=== PATIENT | female | born 1975 | race African-American/Black ===

== ENCOUNTER 2016-07-15 17:52 | Emergency (ER) | payer OTHER ==
[2016-07-15 18:11] VITALS: TEMP 98.3; BMI 51.6
--- NOTE | 2016-07-15 18:42 | PDOC ---
History of Present Illness - General Chief Complaint: Pain Stated Complaint: SOB/PAIN RT SIDE WHEN BREATHING Time Seen by Provider: 07/15/16 18:39 History Source: Patient Exam Limitations: No Limitations - History of Present Illness Travel History: No Timing/Duration: reports: intermittent Quality: reports: dullness Abdominal Pain Onset Location: reports: RUQ Pain Radiation: reports: no radiation Activities at Onset: reports: none Aggravating Factors: improves with: Change in position Alleviating Factors: improves with: None Past History - Travel Traveled outside of the country in the last 30 days: No Close contact w/someone who was outside of country & ill: No - Past Medical History Allergies/Adverse Reactions: Allergies Allergy/AdvReac Type Severity Reaction Status Date / Time No Known Allergies Allergy Verified 07/15/16 18:09 Home Medications: Ambulatory Orders Hydrochlorothiazide [Hctz -] 12.5 mg PO DAILY 12/12/15 Amlodipine Besylate [Norvasc -] 2.5 mg PO DAILY 07/15/16 Cephalexin [Keflex] 500 mg PO BID #14 capsule 07/16/16 Anemia: No Asthma: Yes Cancer: No Cardiac Disorders: (mvp) CVA: No COPD: No CHF: No Dementia: No Diabetes: No GI Disorders: No Disorders: No HTN: Yes Hypercholesterolemia: No Liver Disease: No Seizures: No Thyroid Disease: No - Surgical History Abdominal Surgery: No Appendectomy: No Cardiac Surgery: No Cholecystectomy: No Lung Surgery: No Neurologic Surgery: No Orthopedic Surgery: Yes (Left Knee and Right Wrist Arthroscopy) - Immunization History Td Vaccination: No Immunization Up to Date: Yes - Psycho/Social/Smoking Cessation Hx Anxiety: No Suicidal Ideation: No Smoking Status: Yes Smoking History: Current every day smoker Have you smoked in the past 12 months: Yes Number of Cigarettes Smoked Daily: 5 Cigars Per Day: 0 Information on smoking cessation initiated: No 'Breaking Loose' booklet given: 12/12/15 Hx Alcohol Use: No Drug/Substance Use Hx: No Substance Use Type: None Hx Substance Use Treatment: No Abd/GI Specific PMHX - Complaint Specific PMHX Colitis: No Diverticulitis: No Gall Bladder Disease: No GERD: No Hepatitis: No Review of Systems - Review of Systems Able to Perform ROS?: Yes Comments:: 07/15/16 20:59 CONSTITUTIONAL: Absent: fever, chills, diaphoresis, generalized weakness, malaise, loss of appetite HEENT: Absent: rhinorrhea, nasal congestion, throat pain, throat swelling, difficulty swallowing, mouth swelling, ear pain, eye pain, visual Changes CARDIOVASCULAR: Absent: chest pain, loss of consciousness, palpitations, irregular heart rate, peripheral edema RESPIRATORY: Absent: cough, shortness of breath, dyspnea with exertion, orthopnea, wheezing, stridor, hemoptysis GASTROINTESTINAL: +RUQ Absent: abdominal distension, nausea, vomiting, diarrhea, constipation, melena, hematochezia GENITOURINARY: Absent: dysuria, frequency, urgency, hesitancy, hematuria, flank pain, genital pain MUSCULOSKELETAL: Absent: myalgia, arthralgia, joint swelling SKIN: Absent: rash, itching, pallor HEMATOLOGIC/IMMUNOLOGIC: Absent: easy bleeding, easy bruising, lymphadenopathy, frequent infections ENDOCRINE: Absent: unexplained weight gain, unexplained weight loss, heat intolerance, cold intolerance NEUROLOGIC: Absent: headache, focal weakness or paresthesias, dizziness, unsteady gait, seizure, mental status changes, bladder or bowel incontinence PSYCHIATRIC: Absent: anxiety, depression, suicidal or homicidal ideation, hallucinations. Is the patient limited Austrian proficient: No *Physical Exam - Vital Signs Last Vital Signs Temp Pulse Resp BP Pulse Ox 98.3 F 75 18 155/90 100 07/15/16 18:05 07/15/16 18:05 07/15/16 18:05 07/15/16 18:05 07/15/16 18:05 - Physical Exam Comments: 07/15/16 20:59 GENERAL: Well developed, well nourished. Awake and alert. No acute distress. HEENT: Normocephalic, atraumatic. PERRLA, EOMI. No conjunctival pallor. Sclera are non- icteric. Moist mucous membranes. Oropharynx is clear. NECK: Supple. Full ROM. No JVD. Carotid pulses 2+ and symmetric, without bruits. No thyromegaly. No lymphadenopathy. CARDIOVASCULAR: Regular rate and rhythm. No murmurs, rubs, or gallops. Distal pulses are 2+ and symmetric. PULMONARY: No evidence of respiratory distress. Lungs clear to auscultation bilaterally. No wheezing, rales or rhonchi. ABDOMINAL: RUQ pain on palp Soft. Non-distended. No rebound or guarding. No organomegaly. Normoactive bowel sounds. MUSCULOSKELETAL Normal range of motion at all joints. No bony deformities or tenderness. No CVA tenderness. EXTREMITIES: No cyanosis. No clubbing. No edema. No calf tenderness. SKIN: Warm and dry. Normal capillary refill. No rashes. No jaundice. NEUROLOGICAL: Alert, awake, appropriate. Cranial nerves 2-12 intact. No deficits to light touch and temperature in face, upper extremities and lower extremities. No motor deficits in the in face, upper extremities and lower extremities. Normoreflexic in the upper and lower extremities. Normal speech. Toes are down- going bilaterally. Gait is normal without ataxia. PSYCHIATRIC: Cooperative. Good eye contact. Appropriate mood and affect. ED Treatment Course - LABORATORY CBC & Chemistry Diagram: 07/15/16 19:00 07/15/16 21:35 Progress Note - Progress Note Progress Note: 40-year-old female presents to the emergency department complaining of right upper quadrant abdominal discomfort 3 days. Pain is described as 8/10 dull nonradiating intermittent discomfort. The pain is exacerbated on touch and movements and alleviated at rest. Pain is associated with nausea but no vomiting , chills and "possibly fever". Patient denies any chest pain, shortness of breath, urinary symptoms: Frequency/urgency/hesitancy, hematuria, flank pain. Patient says she drinks alcohol every day for the past 8 years. She cannot say how much "but enough". LMP: 06/27/2016 *DC/Admit/Observation/Transfer Diagnosis at time of Disposition: Ulcer UTI (urinary tract infection) Qualifiers: Urinary tract infection type: acute cystitis Hematuria presence: without hematuria Qualified Code(s): N30.00 - Acute cystitis without hematuria Morbid obesity Qualifiers: Obesity type: unspecified obesity type Qualified Code(s): E66.01 - Morbid ( severe) obesity due to excess calories - Discharge Dispostion Disposition: HOME Condition at time of disposition: Improved - Prescriptions Prescriptions: Cephalexin [Keflex] 500 mg PO BID #14 capsule - Referrals Referrals: STAFF,NOT ON [Primary Care Provider] - Julia Garcia MD [Staff Physician] - Emeka Toscano MD [Staff Physician] - - Patient Instructions Printed Discharge Instructions: Peptic Ulcer, DI for Urinary Tract Infection ( UTI) Additional Instructions: Rx: Keflex 500mg take 1 tablet by mouth twice a day for 7 days Increase fluids Rest 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 The final reading will be done within 48 hours. The CAT scan report shows a small hiatal hernia. Underdistention versus wall thickening of the pylorus. Correlate with possible thick ulcer disease. Right adnexal cyst and or per dominant follicle measuring 1.7 cm. Prominence of the endometrium. Correlate with menstrual cycle. Mild arthrosis of the spine and bilateral SI joints. We have spoke in depth regarding your weight. You informed us that you are 359 pounds. You are 5 foot 10 inches. You should be weighing less than 160 pounds for you height. Your BMI is at 51.5. That puts you at morbidly obese. It is strongly encouraged that you see your primary care physician regarding to weight or a rn school.
[2016-07-15] MEDS ORDERED: SODIUM CHLORIDE 1,000 ML IV STA (18:45)
[2016-07-15 19:10] LABS: BASOPHIL 0.6 % (0-2.0); EOSINOPHIL 5.9 % (0-4.5); MCHC 31.5 g/dl (32.0-36.0); MEAN CELL VOLUME 85.7 fl (80-96); MEAN PLT VOLUME 8.4 fl (7.5-11.1); NEUTROPHILS 55.7 % (42.8-82.8); PLATELET COUNT 324 K/MM3 (134-434); RDW 15.4 % (11.6-15.6); WHITE BLOOD COUNT 6.5 K/mm3 (4.0-10.0)
[2016-07-15 19:18] LABS: URINE APPEARANCE CLOUDY; URINE BILIRUBIN NEGATIVE (NEGATIVE); URINE COLOR YELLOW; URINE GLUCOSE (UA) NEGATIVE (NEGATIVE); URINE KETONE NEGATIVE (NEGATIVE); URINE NITRITE NEGATIVE (NEGATIVE); URINE PROTEIN NEGATIVE (NEGATIVE); URINE UROBILINOGEN NEGATIVE E.U./dl (0.2-1.0)
[2016-07-15 19:20] LABS: URINE BLOOD 1+ (NEGATIVE); URINE LEUK ESTERASE 3+ (NEGATIVE)
[2016-07-15 19:21] LABS: URINE HYALINE CAST 3 /lpf; URINE MUCUS RARE; URINE RBC 5 /hpf (0-3); URINE WBC 9 /hpf (3-5)
[2016-07-15] MEDS ORDERED: HYDROmorphone HCL CARPU-JECT 1 MG/1 ML DISP.SYRIN IVPB ONE (21:17)
[2016-07-15] MEDS ORDERED: HYDROmorphone HCL CARPU-JECT 1 MG/1 ML DISP.SYRIN ONE (21:22)
[2016-07-15] MEDS ORDERED: CEPHALEXIN MONOHYDRATE 500 MG CAPSULE (UD) PO ONE (21:54)
[2016-07-15 22:06] LABS: ALBUMIN 3.3 g/dl (3.4-5.0); ALK PHOS 83 U/L (45-117); ANION GAP 6 (8-16); BILIRUBIN,TOTAL 0.4 mg/dL (0.2-1.0); CALCIUM 8.9 mg/dL (8.5-10.1); CO2 25 mmol/L (21-32); CREATININE 0.9 mg/dL (0.55-1.02); GLUCOSE,RANDOM 94 mg/dL (74-106); SGOT/AST 13 U/L (15-37); SGPT/ALT 18 U/L (12-78); TOT PROT 6.7 g/dl (6.4-8.2)
[2016-07-15] MEDS ORDERED: CEPHALEXIN MONOHYDRATE 250 MG CAPSULE (FP) ONE (22:07)
[2016-07-16] MEDS ORDERED: HYDROmorphone HCL CARPU-JECT 1 MG/1 ML DISP.SYRIN ONE (01:05)
[2016-07-16] MEDS ORDERED: HYDROmorphone HCL CARPU-JECT 1 MG/1 ML DISP.SYRIN IVPUSH ONE (02:06)
[2016-07-17 04:54] VITALS: BP 142/86; PULSE 68
== END 2016-07-16 02:18 | disposition home or self-care (01) ==
LOC: JER 17:52
PROC: 3E0337Z Introduction of Electrolytic and Water Balance Substance into Peripheral Vein, Percutaneous Approach (ICD-10-PCS; principal; 2016-07-15)
PROC: 3E033NZ Introduction of Analgesics, Hypnotics, Sedatives into Peripheral Vein, Percutaneous Approach (ICD-10-PCS; 2016-07-15)
DX: R10.11 Right upper quadrant pain (principal); N30.00 Acute cystitis without hematuria; I10 Essential (primary) hypertension; E66.01 Morbid (severe) obesity due to excess calories; Z68.43 Body mass index [BMI] 50.0-59.9, adult
CPT/HCPCS: 36415; 74177-TC; 76705-TC; 80053; 81003; 81015; 84703; 85025; 96361; 96374; 96376; 99284-25

== ENCOUNTER 2016-09-22 23:31 | Emergency (ER) | payer OTHER ==
[2016-09-22 23:48] VITALS: BP 162/79; PULSE 89; TEMP 98; BMI 47.3
--- NOTE | 2016-09-23 00:37 | PDOC ---
History of Present Illness - General Chief Complaint: Edema Stated Complaint: SWOLLEN LEGS Time Seen by Provider: 09/22/16 23:54 History Source: Patient Exam Limitations: No Limitations - History of Present Illness Initial Comments: 09/23/16 00:32 40yo Female patient presents to ED c/o bilateral leg pain/swelling which began today. Patient states her legs look weird and noticed swelling, so she came in for evaluation. Denies trauma, fall, injury, any medical conditions, or any medications at this time. Patient denies any other complaints at this time. Patient requesting pain medications prior to assessment. LNMP: Aug 28. Occurred: reports: this evening Severity: Yes: mild Lower Extremity Pain Location: bilateral: leg Method of Injury: No: unknown, assault, burn, direct blow, fell, incised, motor vehicle accident, sports injury, twisted, other Modifying Factors: worse with: None, cold therapy, immobilization, pain medication, rest, other Lower Ext. Injury Location - Specific Injury Location Legs: bilateral: normal range of motion, soft tissue tenderness, pain, swelling Extremity Pain Location - Extremity Pain Location Extremity Pain Locations: bilateral: leg Past History - Travel Traveled outside of the country in the last 30 days: No Close contact w/someone who was outside of country & ill: No - Past Medical History Allergies/Adverse Reactions: Allergies Allergy/AdvReac Type Severity Reaction Status Date / Time No Known Allergies Allergy Verified 09/22/16 23:45 Home Medications: Ambulatory Orders Hydrochlorothiazide [Hctz -] 12.5 mg PO DAILY 12/12/15 Amlodipine Besylate [Norvasc -] 2.5 mg PO DAILY 07/15/16 Anemia: No Asthma: Yes Cancer: No Cardiac Disorders: (mvp) CVA: No COPD: No CHF: No Dementia: No Diabetes: No GI Disorders: No Disorders: No HTN: Yes Hypercholesterolemia: No Liver Disease: No Seizures: No Thyroid Disease: No - Surgical History Abdominal Surgery: No Appendectomy: No Cardiac Surgery: No Cholecystectomy: No Lung Surgery: No Neurologic Surgery: No Orthopedic Surgery: Yes (Left Knee and Right Wrist Arthroscopy) - Immunization History Td Vaccination: No Immunization Up to Date: Yes - Psycho/Social/Smoking Cessation Hx Anxiety: No Suicidal Ideation: No Smoking Status: Yes Smoking History: Current some day smoker Have you smoked in the past 12 months: Yes Number of Cigarettes Smoked Daily: 5 Cigars Per Day: 0 Information on smoking cessation initiated: Yes 'Breaking Loose' booklet given: 09/22/16 Hx Alcohol Use: No Drug/Substance Use Hx: No Substance Use Type: None Hx Substance Use Treatment: No Review of Systems - Review of Systems Able to Perform ROS?: Yes Is the patient limited Palauan proficient: No Constitutional: No: Chills, Fever Respiratory: No: Cough, Shortness of Breath, Stridor, Wheezing Cardiac (ROS): No: Chest Pain, Palpitations, Syncope, Chest Tightness : No: Dysuria, Hematuria Musculoskeletal: Yes: Other (Bilateral leg swelling.). No: Back Pain, Joint Swelling, Joint Stiffness Integumentary: No: Rash Neurological: No: Headache All Other Systems: Reviewed and Negative *Physical Exam - Vital Signs Last Vital Signs Temp Pulse Resp BP Pulse Ox 98 F 89 18 162/79 100 09/22/16 23:46 09/22/16 23:46 09/22/16 23:46 09/22/16 23:46 09/22/16 23:46 - Physical Exam General Appearance: Yes: Nourished, Appropriately Dressed. No: Apparent Distress, Mild Distress, Moderate Distress, Severe Distress Neck: positive: Trachea midline, Supple. negative: Rigid Respiratory/Chest: positive: Lungs Clear, Normal Breath Sounds. negative: Respiratory Distress, Accessory Muscle Use, Labored Respiration, Rapid RR Cardiovascular: positive: Regular Rhythm, Regular Rate Gastrointestinal/Abdominal: positive: Normal Bowel Sounds, Soft. negative: Distended, Guarding, Rebound, Tenderness Musculoskeletal: positive: Normal Inspection. negative: CVA Tenderness Extremity: positive: Normal Capillary Refill, Normal Inspection, Normal Range of Motion, Pedal Edema, Swelling. 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 CRUZ FOR EARLY APPOINTMENT THIS WEEK FOR EVALUATION. YOUR LEG SWELLING MAY BE DUE TO THE USE OF CALCIUM CHANNEL [place]. AVOID SALT AND SALTY FOODS. MOTRIN OR TYLENOL FOR PAIN NEEDED. Print Language: UPPER SORBIAN
[2016-09-23 01:12] LABS: BASOPHIL 0.4 % (0-2.0); EOSINOPHIL 1.6 % (0-4.5); MCH 27.7 pg (25.7-33.7); MCHC 32.9 g/dl (32.0-36.0); MEAN PLT VOLUME 8.3 fl (7.5-11.1); NEUTROPHILS 64.8 % (42.8-82.8); PLATELET COUNT 243 K/MM3 (134-434); RDW 14.1 % (11.6-15.6)
[2016-09-23] MEDS ORDERED: KETOROLAC TROMETHAMINE 30 MG/1 ML VIAL IM ONE (01:20)
[2016-09-23] MEDS ORDERED: KETOROLAC TROMETHAMINE 30 MG/1 ML VIAL ONE (01:22)
[2016-09-23 01:48] LABS: ALBUMIN 3.5 g/dl (3.4-5.0); ALK PHOS 74 U/L (45-117); ANION GAP 10 (8-16); BILIRUBIN,TOTAL 0.4 mg/dL (0.2-1.0); CALCIUM 8.8 mg/dL (8.5-10.1); CO2 26 mmol/L (21-32); CREATININE 0.9 mg/dL (0.55-1.02); GLUCOSE,RANDOM 103 mg/dL (74-106); SGOT/AST 18 U/L (15-37); SGPT/ALT 20 U/L (12-78); TOT PROT 6.9 g/dl (6.4-8.2)
[2016-09-23 01:51] LABS: INR 0.96 (0.82-1.09)
[2016-09-23 01:54] LABS: D-DIMER < 200 ng/ml (<200-235)
[2016-09-23 05:37] LABS: THYROID STIMULATING HORMONE 0.82 uIU/ml (0.358-3.74)
== END 2016-09-23 03:37 | disposition home or self-care (01) ==
LOC: JER 23:31
PROC: 3E0233Z Introduction of Anti-inflammatory into Muscle, Percutaneous Approach (ICD-10-PCS; principal; 2016-09-22)
DX: R60.0 Localized edema (principal)
CPT/HCPCS: 36415; 80053; 83880; 84443; 85025; 85379; 85610; 85651; 96372; 99282-25

== ENCOUNTER 2016-10-09 21:01 | Emergency (ER) | payer OTHER ==
[2016-10-09 21:21] VITALS: BP 145/83; PULSE 87; TEMP 98.1; BMI 46.0
== END 2016-10-09 23:00 | disposition left against medical advice (07) ==
LOC: JERFT 21:01
DX: Z53.21 Procedure and treatment not carried out due to patient leaving prior to being seen by health care provider (principal)
CPT/HCPCS: 99281-25

== ENCOUNTER 2016-12-11 21:35 | Emergency (ER) | payer OTHER ==
[2016-12-11 22:07] VITALS: BMI 46.0
[2016-12-11] MEDS ORDERED: OXYCODONE/APAP 5/325MG COMBO TABLET PO ONE (22:46)
[2016-12-11] MEDS ORDERED: OXYCODONE/APAP 5/325MG COMBO TABLET ONE (23:17)
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
[2016-12-12 00:45] VITALS: BP 150/90; PULSE 89; TEMP 98.8
== END 2016-12-12 00:45 | disposition home or self-care (01) ==
LOC: JER 21:35
PROC: 2W3EX1Z Immobilization of Right Hand using Splint (ICD-10-PCS; principal; 2016-12-11)
DX: S60.221A Contusion of right hand, initial encounter (principal); Y04.2XXA Assault by strike against or bumped into by another person, initial encounter; Y93.89 Activity, other specified; Y92.89 Other specified places as the place of occurrence of the external cause
CPT/HCPCS: 73110-TC-RT; 73130-TC-RT; 99282-25

== ENCOUNTER → 2018-04-07 | Emergency (ER) | payer SELFPAY ==
[~2018-04-07] MED LIST: CEPHALEXIN MONOHYDRATE 500 MG CAPSULE (UD) ONE; CEPHALEXIN MONOHYDRATE 500 MG CAPSULE (UD) PO ONE; DIPHTH,PERTUSS(ACELL),TET 0.5 ML DISP.SYRIN IM ONE; IBUPROFEN 400 MG TABLET (FP) PO ONE
--- NOTE | 2018-04-07 02:01 | PDOC ---
History of Present Illness <Zahra Berkowitz - Last Filed: 04/07/18 04:03> - General History Source: Patient Exam Limitations: No Limitations - History of Present Illness Initial Comments: 04/07/18 02:52 42 year old female with PMH atrial fibrillation on eliquis, HTN presented to ED complaining of right big toe pain s/p dropping a dede car part on it x2 days ago. Denies fever, chills, nausea, vomiting, inability to bear weight, or any other complaints. Allergies - NKDA <Libby Whitney - Last Filed: 04/07/18 19:35> - General Stated Complaint: INJURY,LT FOOT Time Seen by Provider: 04/07/18 02:00 Past History <Zahra Berkowitz - Last Filed: 04/07/18 04:03> - Past Medical History Anemia: No Asthma: Yes Cancer: No Cardiac Disorders: Yes (mvp) CVA: No COPD: No CHF: No Dementia: No Diabetes: No GI Disorders: No Disorders: No HTN: Yes Hypercholesterolemia: No Liver Disease: No Seizures: No Thyroid Disease: No - Surgical History Abdominal Surgery: No Appendectomy: No Cardiac Surgery: No Cholecystectomy: No Lung Surgery: No Neurologic Surgery: No Orthopedic Surgery: Yes (Left Knee and Right Wrist Arthroscopy) - Immunization History Td Vaccination: No Immunization Up to Date: Yes - Suicide/Smoking/Psychosocial Hx Smoking Status: Yes Smoking History: Current every day smoker Have you smoked in the past 12 months: Yes Number of Cigarettes Smoked Daily: 5 Cigars Per Day: 0 'Breaking Loose' booklet given: 09/22/16 Hx Alcohol Use: No Drug/Substance Use Hx: No Substance Use Type: None Hx Substance Use Treatment: No <Libby Whitney - Last Filed: 04/07/18 19:35> - Past Medical History Allergies/Adverse Reactions: Allergies Allergy/AdvReac Type Severity Reaction Status Date / Time No Known Allergies Allergy Verified 04/07/18 02:31 Home Medications: Ambulatory Orders Hydrochlorothiazide [Hctz -] 12.5 mg PO DAILY 12/12/15 Amlodipine Besylate [Norvasc -] 2.5 mg PO DAILY 07/15/16 Tramadol HCl 50 mg PO TID #14 tablet MDD 3 12/12/16 Apixaban [Eliquis -] 5 mg PO BID #60 tablet 02/21/18 Apixaban [Eliquis] 5 mg PO BID #6 tablet 02/21/18 Metoprolol Succinate [Toprol XL -] 50 mg PO DAILY #30 tab.sr.24h 02/21/18 Cephalexin Monohydrate [Keflex -] 500 mg PO BID #14 capsule 04/07/18 Review of Systems - Review of Systems Able to Perform ROS?: Yes Comments:: 04/07/18 04:39 General: denies fever, chills, night sweats, generalized weakness. HEENT: denies sore throat, rhinorrhea, ear pain. Heart: denies chest pain, palpitations, syncope, lower extremity swelling, diaphoresis. Respiratory: denies shortness of breath, cough, sputum production, hemoptysis. Abdomen: denies abdominal pain, nausea, vomiting, diarrhea, constipation, blood in stool. : denies dysuria, increased urinary frequency, hematuria, urinary incontinence , flank pain. Back: denies back pain. Musculoskeletal: admits to right toe pain, right toe swelling. Neurological: denies headache, dizziness, numbness, tingling, weakness. Skin: admits to right toe erythema and bleeding. <Libby Whitney - Last Filed: 04/07/18 19:35> *Physical Exam - Vital Signs Last Vital Signs Temp Pulse Resp BP Pulse Ox 98.5 F 78 18 144/93 97 04/07/18 00:20 04/07/18 00:20 04/07/18 00:20 04/07/18 00:20 04/07/18 00:20 <Zahra Berkowitz - Last Filed: 04/07/18 04:03> - Physical Exam Comments: 04/07/18 04:40 Constitutional: Well-nourished, Well-developed, appearing stated age. HEENT: head is normocephalic, atraumatic. EOMI. PERRLA. Neck: supple. Full ROM. Heart: regular rhythm. no murmurs, rubs or gallops. Lungs: clear to auscultation bilaterally. no crackles, rhonchi or wheezing. no stridor. Abdomen: soft, nontender. normal bowel sounds. no rebound, guarding, masses. Extremities: right big toe subungual hematoma. erythema and swelling to right big toe. no nail avulsion to right big toe. Peripheral pulses intact and equal. No lower extremity edema. Neurological: CN 2-12 grossly intact. Moves all four extremities. Psych: awake, alert, oriented x3. Follows commands. Answers questions appropriately. <Libby Whitney - Last Filed: 04/07/18 19:35> ED Treatment Course - ADDITIONAL ORDERS Additional order review: Laboratory Results 04/07/18 03:00 Urine HCG, Qual Negative - Medications Given in the ED: ED Medications Discontinued Medications Generic Name Dose Route Start Last Admin Trade Name Hectorq PRN Reason Stop Dose Admin Cephalexin HCl 500 mg 04/07/18 02:55 04/07/18 03:29 Keflex - PO 04/07/18 02:56 500 mg ONCE ONE Administration Diphtheria/Tetanus/Acell Pertussis 0.5 ml 04/07/18 03:01 04/07/18 03:30 Boostrix - IM 04/07/18 03:02 0.5 ml .ONCE ONE Administration Ibuprofen 800 mg 04/07/18 03:30 04/07/18 03:46 Motrin - PO 04/07/18 03:31 800 mg ONCE ONE Administration <Zahra Berkowitz - Last Filed: 04/07/18 04:03> Medical Decision Making - Medical Decision Making 04/07/18 02:53 42 year old female with PMH atrial fibrillation on eliquis, HTN presenting to ED for right big toe pain x3 days. Shes states she dropped a dede car part on it x3 days ago. She denies fever, chills, nausea, vomiting, abdominal pain, chest pain, palpitations, shortness of breath, cough. She states her last tetanus was over 10 years ago. Initial Vital Signs Temp Pulse Resp BP Pulse Ox 98.5 F 78 18 144/93 97 04/07/18 00:20 04/07/18 00:20 04/07/18 00:20 04/07/18 00:20 04/07/18 00:20 Afebrile. No tachycardia. Mild hypertension. No hypoxia on room air. Concern for fracture - Pending urine test - Pending XR Concern for cellulitis, erythematous, tender - Keflex given - Tetanus shot given Urine test negative. Pt was able to walk to XR without difficulty. Subungual hematoma x3 days old, no indication for drainage at this point. Nail is fully attached to the toe. XR Right foot - Bettie fracture to right big toe. - Keflex prescription sent to pharmacy. Pt eloped prior to receiving X-ray results. Prescription sent to pharmacy on file. Message left on her answering machine. 04/07/18 19:34 <Libby Whitney - Last Filed: 04/07/18 19:35> *DC/Admit/Observation/Transfer - Discharge Dispostion Decision to Admit order: No <Zahra Berkowitz - Last Filed: 04/07/18 04:03> - Discharge Dispostion Decision to Admit order: No <Libby Whitney - Last Filed: 04/07/18 19:35> Diagnosis at time of Disposition: Fracture of distal phalanx of toe - Discharge Dispostion Disposition: ELOPED Condition at time of disposition: Stable - Prescriptions Prescriptions: Cephalexin Monohydrate [Keflex -] 500 mg PO BID #14 capsule - Referrals Referrals: Abel Cobb MD [Staff Physician] - Andrez Meek MD [Primary Care Provider] - - Patient Instructions Printed Discharge Instructions: DI for Toe Fracture, DI for Open Fracture - Post Discharge Activity
--- NOTE | 2018-04-07 02:23 | PDOC ---
Attending Attestation - Resident Resident Name: Libby Whitney - ED Attending Attestation I have performed the following: I have examined & evaluated the patient, The case was reviewed & discussed with the resident, I agree w/resident's findings & plan, Exceptions are as noted - HPI HPI: 42 yo F history HTN, afib on eliquis presents with R great toe pain after dropping a dede car part on it 2 days ago. She states that it was bleeding at the time, took quite awhile to stop due to eliquis. She has had continued pain since then, although the wound has developed a clot followed by a scab. - Physicial Exam PE: GENERAL: Awake, alert, and fully oriented, in no acute distress HEAD: No signs of trauma EYES: PERRLA, EOMI, sclera anicteric, conjunctiva clear EXTREMITIES: R great toe with slight elevation, subungual hematoma, with small scab to the periphery of the nail. +Swelling, slight erythema. Remainder of extremities with normal range of motion, no edema. No clubbing or cyanosis. No cords, erythema, or tenderness NEUROLOGICAL: Cranial nerves II through XII grossly intact. Normal speech, normal gait SKIN: Warm, Dry, normal turgor, no rashes or lesions noted. - Medical Decision Making For the subungual hematoma, will not trephinate, as it has been 2 days and unlikely to be of any benefit at this time. Will give abx for redness, awaiting XR. 04/07/18 04:31 Pt eloped prior to receiving XR results. She has open fracture (while the wound is scabbed over at this point, there is an underlying fx, needs to continue abx) . I left message on her phone to call back so I could explain DC instructions. 04/07/18 04:35 Pt back in ED. Will DC home. 04/07/18 05:06 Pt eloped again.
[2018-04-07 02:31] VITALS: BP 144/93; PULSE 78; TEMP 98.5; BMI 50.2
== END | disposition left against medical advice (07) ==
LOC: JER 00:19
PROC: 3E0234Z Introduction of Serum, Toxoid and Vaccine into Muscle, Percutaneous Approach (ICD-10-PCS; principal; 2018-04-07)
DX: S92.424A Nondisplaced fracture of distal phalanx of right great toe, initial encounter for closed fracture (principal); W20.8XXA Other cause of strike by thrown, projected or falling object, initial encounter; Y93.89 Activity, other specified; Y92.89 Other specified places as the place of occurrence of the external cause; Y99.8 Other external cause status
CPT/HCPCS: 73630-TC-RT-FY; 84703; 90715; 99281-25

== ENCOUNTER 2018-06-20 16:58 | Emergency (ER) | payer OTHER ==
[2018-06-20 17:12] VITALS: BP 157/94; PULSE 80; TEMP 98.1; BMI 41.8
[2018-06-20] MEDS ORDERED: ALBUTEROL SO4 2.5/IPRATROPIUM 0.5 INH SOL 3 ML VIAL.NEB. NEB ONE ×2 (17:20→17:38)
--- NOTE | 2018-06-20 17:28 | PDOC ---
History of Present Illness - General Chief Complaint: Asthma Stated Complaint: DIFFICULTY BREATHING Time Seen by Provider: 06/20/18 17:14 History Source: Patient - History of Present Illness Initial Comments: 06/20/18 18:36 42 year old female with asthma, cough, throat pain and nasal congestion denies fver/ chills Past History - Past Medical History Allergies/Adverse Reactions: Allergies Allergy/AdvReac Type Severity Reaction Status Date / Time No Known Allergies Allergy Verified 06/20/18 17:08 Home Medications: Ambulatory Orders Hydrochlorothiazide [Hctz -] 12.5 mg PO DAILY 12/12/15 Amlodipine Besylate [Norvasc -] 2.5 mg PO DAILY 07/15/16 Apixaban [Eliquis] 5 mg PO BID #6 tablet 02/21/18 Metoprolol Succinate [Toprol XL -] 50 mg PO DAILY #30 tab.sr.24h 02/21/18 Albuterol 0.083% Nebulizer Rachael [Ventolin 0.083% Nebulizer Soln -] 1 neb NEB Q4H #30 vial 06/20/18 Azithromycin [Zithromax 250mg Tablets -] 250 mg PO UTDICT #6 tab 06/20/18 predniSONE [Deltasone -] 60 mg PO DAILY #12 tablet 06/20/18 Anemia: No Asthma: Yes Cancer: No Cardiac Disorders: Yes (mvp) CVA: No COPD: No CHF: No Dementia: No Diabetes: No GI Disorders: No Disorders: No HTN: Yes Hypercholesterolemia: No Liver Disease: No Seizures: No Thyroid Disease: No - Surgical History Abdominal Surgery: No Appendectomy: No Cardiac Surgery: No Cholecystectomy: No Lung Surgery: No Neurologic Surgery: No Orthopedic Surgery: Yes (Left Knee and Right Wrist Arthroscopy) - Immunization History Td Vaccination: No Immunization Up to Date: Yes - Suicide/Smoking/Psychosocial Hx Smoking Status: Yes Smoking History: Current every day smoker Have you smoked in the past 12 months: Yes Number of Cigarettes Smoked Daily: 3 Cigars Per Day: 0 Information on smoking cessation initiated: No 'Breaking Loose' booklet given: 09/22/16 Hx Alcohol Use: No Drug/Substance Use Hx: No Substance Use Type: None Hx Substance Use Treatment: No *Physical Exam - Vital Signs Last Vital Signs Temp Pulse Resp BP Pulse Ox 98.1 F 80 25 H 157/94 98 06/20/18 17:08 06/20/18 17:08 06/20/18 17:08 06/20/18 17:08 06/20/18 17:08 - Physical Exam General Appearance: Yes: Appropriately Dressed HEENT: positive: Tonsillar Erythema, Other (mild erythema) Respiratory/Chest: positive: Wheezing. negative: Accessory Muscle Use Cardiovascular: positive: Regular Rhythm, Regular Rate Gastrointestinal/Abdominal: positive: Normal Bowel Sounds, Soft Musculoskeletal: positive: Normal Inspection Integumentary: positive: Normal Color, Dry, Warm Neurologic: positive: Fully Oriented, Alert, Normal Mood/Affect Moderate Sedation - Procedure Monitoring Vital Signs: Procedure Monitoring Vital Signs Temperature 98.1 F 06/20/18 17:08 Pulse Rate 80 06/20/18 17:08 Respiratory Rate 25 H 06/20/18 17:08 Blood Pressure 157/94 06/20/18 17:08 O2 Sat by Pulse Oximetry (%) 98 06/20/18 17:08 ED Treatment Course - Medications Given in the ED: ED Medications Discontinued Medications Generic Name Dose Route Start Last Admin Trade Name Jeremy PRN Reason Stop Dose Admin Albuterol/Ipratropium 1 amp 06/20/18 17:20 06/20/18 17:15 Duoneb - NEB 06/20/18 17:21 1 amp NOW ONE Administration Medical Decision Making - Medical Decision Making 06/20/18 18:20 improved aeration. has dry cough now c/o throat pain/ ear pain *DC/Admit/Observation/Transfer Diagnosis at time of Disposition: Bronchitis Asthma exacerbation Qualifiers: Asthma severity: mild Asthma persistence: intermittent Qualified Code(s): J45.21 - Mild intermittent asthma with (acute) exacerbation - Discharge Dispostion Disposition: HOME - Prescriptions Prescriptions: Albuterol 0.083% Nebulizer Rachael [Ventolin 0.083% Nebulizer Soln -] 1 neb NEB Q4H #30 vial Azithromycin [Zithromax 250mg Tablets -] 250 mg PO UTDICT #6 tab predniSONE [Deltasone -] 60 mg PO DAILY #12 tablet - Referrals Referrals: Velia Meek [Primary Care Provider] - - Patient Instructions Printed Discharge Instructions: Asthma -- Adult, DI for Chronic Bronchitis Additional Instructions: drink plenty of fluids take ibuprofen every 6 hours as needed for pain take albuterol every 4 hours take prednisone as prescribed take azithromycin as prescribed Additional Instructions: * Please call your personal physician to report your Emergency Department visit and to report your progress, if any. * If there is no improvement in symptoms in 2 days call your physician. * Return to the Emergency Department for any worsening symptoms. - Post Discharge Activity Forms/Work/School Notes: Back to Work
[2018-06-20] MEDS ORDERED: predniSONE 20 MG TABLET (UD) PO ONE (17:35)
[2018-06-20] MEDS ORDERED: predniSONE 20 MG TABLET (UD) ONE (17:38)
[2018-06-20] MEDS: ALBUTEROL SO4 2.5/IPRATROPIUM 0.5 INH SOL 3 ML VIAL.NEB. NEB SCH ×4 (17:41→18:36)
[2018-06-20] MEDS ORDERED: IBUPROFEN 600 MG TABLET (FP) PO ONE ×2 (18:19→18:27)
== END 2018-06-20 19:18 | disposition home or self-care (01) ==
LOC: JERFT 16:58
PROC: 3E0F7GC Introduction of Other Therapeutic Substance into Respiratory Tract, Via Natural or Artificial Opening (ICD-10-PCS; principal; 2018-06-20)
DX: J40 Bronchitis, not specified as acute or chronic (principal); J45.21 Mild intermittent asthma with (acute) exacerbation; F17.210 Nicotine dependence, cigarettes, uncomplicated; I10 Essential (primary) hypertension
CPT/HCPCS: 99281-25

== ENCOUNTER 2019-03-20 09:52 | Emergency (ER) | payer OTHER ==
[2019-03-20 09:59] VITALS: BP 147/69; PULSE 83; TEMP 98; BMI 48.5
--- NOTE | 2019-03-20 10:53 | PDOC ---
History of Present Illness - General Chief Complaint: Respiratory Stated Complaint: ASTHMA Time Seen by Provider: 03/20/19 10:00 - History of Present Illness Initial Comments: 03/20/19 10:51 CHIEF COMPLAINT: cough HISTORY OF PRESENT ILLNESS: 43 yo F with hx of afib, HTN, and asthma presents to [facility] with cough and congestion x 2 weeks. Patient states she took "1 amoxicillin pill last week and one today" that were her daughters pills "for a toothache, because I thought it might help me get better." She denies any fever , chills, nausea, vomiting, diarrhea. No recent travel or sick contacts. PAST MEDICAL HISTORY: Denies past medical history FAMILY HISTORY: Denies SOCIAL HISTORY: Denies tobacco, alcohol, illicit drug use. SURGICAL HISTORY: Denies ALLERGIES: No known drug allergies REVIEW OF SYSTEMS General/Constitutional: Denies fever or chills. Denies weakness, weight change. HEENT: Denies change in vision. Denies ear pain or discharge. Denies sore throat. Cardiovascular: Denies chest pain or shortness of breath. Respiratory: Cough and congestion x 2 weeks. Gastrointestinal: Denies nausea, vomiting, diarrhea or constipation. Denies rectal bleeding. Genitourinary: Denies dysuria, frequency, or change in urination. Musculoskeletal: Denies joint or muscle swelling or pain. Denies neck or back pain. Skin and breasts: Denies rash or easy bruising. Neurologic: Denies headache, vertigo, loss of consciousness, or loss of sensation. Psychiatric: Denies depression or anxiety. Endocrine: Denies increased thirst. Denies abnormal weight change. Hematologic/Lymphatic: Denies anemia, easy bleeding, or history of blood clots. Allergic/Immunologic: Denies hives or skin allergy. Denies latex allergy. PHYSICAL EXAM General Appearance: Well-appearing, appropriately dressed. No apparent distress , no intoxication. HEENT: EOMI, PERRLA, normal ENT inspection, normal voice, TMs normal, pharynx normal. No conjunctival pallor. No photophobia, scleral icterus. Neck: Supple. Trachea midline. No tenderness, rigidity, carotid bruit, stridor , lymphadenopathy, or thyromegaly. Respiratory/Chest: Lungs CTAB. No shortness of breath, chest tenderness, respiratory distress, accessory muscle use. No crackles, rales, rhonchi, stridor , wheezing, dullness Cardiovascular: RRR. S1, S2. No JVD, murmur, bradycardia, tachycardia. Vascular Pulses: Dorsalis-Pedis (R): 2+, Dorsalis-Pedis (L): 2+ Gastrointestinal/Abdominal: Normal bowel sounds. Abdomen soft, non-distended. No tenderness or rebound tenderness. No organomegaly, pulsatile mass, guarding , hernia, hepatomegaly, splenomegaly. Lymphatic: No adenopathy, tenderness. Musculoskeletal/Extremities: Normal inspection. FROM of all extremities, normal capillary refill. Pelvis Stable. No CVA tenderness. No tenderness to extremities, pedal edema, swelling, erythema or deformity. Integumentary: Appropriate color, dry, warm. No cyanosis, erythema, jaundice or rash Neurologic: gang sawyer II-XII intact. Fully oriented, alert. Appropriate mood/affect. Motor strength 5/5. No appreciable EOM palsy, facial droop or sensory deficit. 03/20/19 10:57 Past History - Past Medical History Allergies/Adverse Reactions: Allergies Allergy/AdvReac Type Severity Reaction Status Date / Time No Known Allergies Allergy Verified 03/20/19 09:59 Home Medications: Ambulatory Orders Hydrochlorothiazide [Hctz -] 12.5 mg PO DAILY 12/12/15 Amlodipine Besylate [Norvasc -] 2.5 mg PO DAILY 07/15/16 Apixaban [Eliquis] 5 mg PO BID #6 tablet 02/21/18 Metoprolol Succinate [Toprol XL -] 50 mg PO DAILY #30 tab.sr.24h 02/21/18 Albuterol Sulfate Inhaler - [Ventolin HFA Inhaler -] 1 - 2 inh PO Q4H PRN #1 inhaler 03/20/19 Azithromycin [Zithromax 250mg Tablets -] 250 mg PO ASDIR #6 tablet 03/20/19 Anemia: No Asthma: Yes Cancer: No Cardiac Disorders: Yes (mvp a-fib) CVA: No COPD: No CHF: No Dementia: No Diabetes: No GI Disorders: No Disorders: No HTN: Yes Hypercholesterolemia: No Liver Disease: No Seizures: No Thyroid Disease: No - Surgical History Abdominal Surgery: No Appendectomy: No Cardiac Surgery: No Cholecystectomy: No Lung Surgery: No Neurologic Surgery: No Orthopedic Surgery: Yes (Left Knee and Right Wrist Arthroscopy) - Immunization History Td Vaccination: No Immunization Up to Date: Yes - Suicide/Smoking/Psychosocial Hx Smoking Status: Yes Smoking History: Current every day smoker Have you smoked in the past 12 months: Yes Number of Cigarettes Smoked Daily: 3 Cigars Per Day: 0 Information on smoking cessation initiated: No 'Breaking Loose' booklet given: 09/22/16 Hx Alcohol Use: No Drug/Substance Use Hx: No Substance Use Type: None Hx Substance Use Treatment: No *Physical Exam - Vital Signs Last Vital Signs Temp Pulse Resp BP Pulse Ox 98 F 83 18 147/69 99 03/20/19 09:55 03/20/19 09:55 03/20/19 09:55 03/20/19 09:55 03/20/19 09:55 Medical Decision Making - Medical Decision Making 03/20/19 10:53 43 yo F with hx of afib, HTN, presents to [facility] with cough and congestion x 2 week. -CXR CXR negative. Given duration of symptoms will rx antibiotics for acute bronchitis. Advised patient to take medication as prescribed and follow up with PCP within the next week. Advised patient of signs and symptoms for return to ED. Patient verbalized understanding and agrees to plan. *DC/Admit/Observation/Transfer Diagnosis at time of Disposition: Bronchitis - Discharge Dispostion Disposition: HOME Condition at time of disposition: Stable Decision to Admit order: No - Prescriptions Prescriptions: Albuterol Sulfate Inhaler - [Ventolin HFA Inhaler -] 1 - 2 inh PO Q4H PRN #1 inhaler PRN Reason: Short Of Breath/Wheezing Azithromycin [Zithromax 250mg Tablets -] 250 mg PO ASDIR #6 tablet - Referrals Referrals: Andrez Meek MD [Primary Care Provider] - - Patient Instructions Printed Discharge Instructions: DI for Acute Bronchitis Additional Instructions: As discussed, please take medications as prescribed and complete the entire course of antibiotics, even if your symptoms improve. Please get plenty of rest and drink lots of fluids to help break up any secretions. Follow up with your primary care doctor if symptoms persist past 5-7 days. If you develop any fever or chills unrelieved by Motrin or Tylenol, persistent vomiting or diarrhea , shortness of breath unrelieved by your inhaler, or any new or worsening symptoms, please return to the ER. - Post Discharge Activity Forms/Work/School Notes: Back to Work
--- NOTE | 2019-03-20 14:54 | EKG ---
Test Reason : Blood Pressure : / mmHG Vent. Rate : 076 BPM Atrial Rate : 076 BPM P-R Int : 150 ms QRS Dur : 084 ms QT Int : 372 ms P-R-T Axes : 058 049 017 degrees QTc Int : 418 ms NORMAL SINUS RHYTHM LEFT ATRIAL ENLARGEMENT T WAVE ABNORMALITY, CONSIDER ANTERIOR ISCHEMIA ABNORMAL ECG WHEN COMPARED WITH ECG OF 20-FEB-2018 01:43, SINUS RHYTHM HAS REPLACED ATRIAL FIBRILLATION VENT. RATE HAS DECREASED BY 56 BPM NON-SPECIFIC CHANGE IN ST SEGMENT IN INFERIOR LEADS T WAVE INVERSION NOW EVIDENT IN ANTERIOR LEADS Confirmed by MD IAN, ROSALINDA ([id number]) on 03/20/2019 2:54:07 PM Referred By: Confirmed By:ROSALINDA SOSA MD
== END 2019-03-20 11:26 | disposition home or self-care (01) ==
LOC: JERFT 09:52
DX: J40 Bronchitis, not specified as acute or chronic (principal); I10 Essential (primary) hypertension; I48.91 Unspecified atrial fibrillation; Z79.01 Long term (current) use of anticoagulants; I34.1 Nonrheumatic mitral (valve) prolapse; F17.210 Nicotine dependence, cigarettes, uncomplicated
CPT/HCPCS: 71046-TC-FY; 93005; 93010; 99281-25

== ENCOUNTER 2020-02-06 23:15 | Emergency (ER) | payer OTHER ==
[2020-02-06 23:47] VITALS: TEMP 98.8; BMI 48.9
--- NOTE | 2020-02-07 01:23 | PDOC ---
Documentation entered by Gayla Anderson SCRIBE, acting as scribe for Elaina Smith MD. Elaina Smith MD: This documentation has been prepared by the scribe, Gayla Anderson SCRIBE, under my direction and personally reviewed by me in its entirety. I confirm that the documentation accurately reflects all work, treatment, procedures, and medical decision making performed by me. Attending Attestation - Resident Resident Name: BarryCrow - ED Attending Attestation I have performed the following: I have examined & evaluated the patient, The case was reviewed & discussed with the resident, I agree w/resident's findings & plan, Exceptions are as noted - HPI HPI: 02/07/20 01:19 Patient is a 44 year old female with a significant past medical history of obesity, hypertension, atrial fibrillation, and asthma, who presents to the ED with c/o palpitations since 7 pm tonight, She took her metoprolol and eliquis at 9 pm. she admits that she is often noncompliant with her medications Patient denies:substernal chest pain,nausea,vomiting,diaphoresis,fever of chills or cough Allergies: NKDA 02/07/20 01:22 02/07/20 01:28 02/07/20 01:29 - Physicial Exam PE: 02/07/20 01:30 Morbidly obese 44 yo female p/w tachycardia head ncat neck supple lungs cta b/l cvs irreg irreg abdomen protuberant extremities no edema skin warm and dry neuro acoc3,ambulatory 02/07/20 01:45 - Medical Decision Making 02/07/20 01:47 plan ekg, cardiac enzymes,,cbc,comp,sprg,cxr 02/07/20 02:03 Discharge - Discharge Information Problems reviewed: Yes Clinical Impression/Diagnosis: Atrial fibrillation Condition: Fair Disposition: HOME - Follow up/Referral Referrals: Andrez Meek MD [Primary Care Provider] - - Patient Discharge Instructions Patient Printed Discharge Instructions: DI for Atrial Fibrillation Additional Instructions: Atrial fibrillation is a very most common heart rhythm problem. The condition puts you at risk for strokes and heart attacks. It helps if you control your blood pressure, not drink more than 1-2 alcohol drinks per day, cut down on caffeine, getting treatment for over active thyroid gland, and get regular exercise. Call your doctor if you feel your heart racing or beating unusually, chest tightness or pain, lightheaded, faint, shortness of breath especially with exercise. It is important to take your heart medication as prescribed. You may be on anticoagulation which is very important to take as directed - you may need blood work to monitor drug levels - Post Discharge Activity
--- NOTE | 2020-02-07 01:48 | PDOC ---
History of Present Illness - General Chief Complaint: Blood Pressure Problem Stated Complaint: HIGH BLOOD PRESSURE Time Seen by Provider: 02/07/20 01:03 History Source: Patient Exam Limitations: No Limitations - History of Present Illness Initial Comments: Ada Nagel is a 44 Y F with a PMH of Afib, HTN, and Asthma, presents to ER with palpitations for 1 day. She reports that she was at home and around 7:00 pm she felt unwell, anxious and had palpitations. She checked her bp at home, which was elevated @ 149/105. Around 9.00 pm she was still having palpitations, so she took her eliquis and metroprolol 50 mg, which did not resolve her palpitaions or decrease BP, she felt more anxious, which prompt her to visit ER. She reports that she is non compliant with her daily medical regiment. She denies any chest pain, sob, neck pain, fever, chills, abdominal pain, nausea, vomiting, changes in vision, headache, or LOC. 02/07/20 01:37 02/07/20 01:54 Past History - Travel History Traveled outside of the country in the last 30 days: No - Medical History Allergies/Adverse Reactions: Allergies Allergy/AdvReac Type Severity Reaction Status Date / Time No Known Allergies Allergy Verified 02/06/20 23:47 Home Medications: Ambulatory Orders Hydrochlorothiazide [Hctz -] 12.5 mg PO DAILY 12/12/15 Amlodipine Besylate [Norvasc -] 2.5 mg PO DAILY 07/15/16 Apixaban [Eliquis] 5 mg PO BID #6 tablet 02/21/18 Metoprolol Succinate [Toprol XL -] 50 mg PO DAILY #30 tab.sr.24h 02/21/18 Albuterol 0.083% Nebulizer Rachael [Ventolin 0.083% Nebulizer Soln -] 1 neb NEB Q4H PRN #30 vial 03/20/19 Albuterol Sulfate Inhaler - [Ventolin HFA Inhaler -] 1 - 2 inh PO Q4H PRN #1 inhaler 03/20/19 Azithromycin [Zithromax 250mg Tablets -] 250 mg PO ASDIR #6 tablet 03/20/19 Anemia: No Asthma: Yes Cancer: No Cardiac Disorders: Yes (mvp a-fib) CVA: No COPD: No CHF: No Dementia: No Diabetes: No GI Disorders: No Disorders: No HTN: Yes Hypercholesterolemia: No Liver Disease: No Seizures: No Thyroid Disease: No - Surgical History Abdominal Surgery: No Appendectomy: No Cardiac Surgery: No Cholecystectomy: No Lung Surgery: No Neurologic Surgery: No Orthopedic Surgery: Yes (Left Knee and Right Wrist Arthroscopy) - Immunization History Td Vaccination: No Immunization Up to Date: Yes - Psycho-Social/Smoking History Smoking Status: Yes Smoking History: Never smoked Have you smoked in the past 12 months: Yes Number of Cigarettes Smoked Daily: 3 Cigars Per Day: 0 Information on smoking cessation initiated: No 'Breaking Loose' booklet given: 09/22/16 - Substance Abuse Hx (Audit-C & DAST Scrn) How often the patient has a drink containing alcohol: Never Score: In Men: 4 or > Positive; In Women: 3 or > Positive: 0 Screen Result (Pos requires Nsg. Audit-10AR): Negative In the last yr the pt used illegal drug/Rx for NonMed reason: No Score: Yes response is considered Positive: 0 Screen Result (Positive result requires Nsg. DAST-10): Negative Review of Systems - Review of Systems Able to Perform ROS?: Yes Is the patient limited [place] proficient: No Constitutional: No: Chills, Diaphoresis, Fever, Weakness HEENTM: No: Blurred Vision, Nose Congestion, Difficulty Swallowing Respiratory: No: Cough, Shortness of Breath, Wheezing Cardiac (ROS): Yes: Irregular Heart Rate, Palpitations. No: Chest Pain, Syncope, Chest Tightness ABD/GI: No: Constipated, Diarrhea, Difficulty Swallowing, Nausea, Vomiting : No: Burning, Dysuria, Pain Integumentary: No: Rash, Sweating Neurological: No: Headache, Numbness, Tingling Psychiatric: Yes: Anxiety *Physical Exam - Vital Signs Last Vital Signs Temp Pulse Resp BP Pulse Ox 98.8 F 62 18 149/105 H 100 02/06/20 23:15 02/06/20 23:15 02/06/20 23:15 02/06/20 23:15 02/06/20 23:15 - Physical Exam General Appearance: Yes: Obese. No: Apparent Distress HEENT: positive: EOMI, RIGOBERTO. negative: Nasal Congestion, Rhinorrhea Neck: positive: Supple. negative: Tender, Carotid bruit Respiratory/Chest: positive: Lungs Clear, Normal Breath Sounds. negative: Chest Tender, Respiratory Distress, Crackles, Rales, Rhonchi, Wheezing Cardiovascular: positive: S1, S2, Irregularly Irregular. negative: Edema, JVD, Murmur Vascular Pulses: Carotid (R): 2+, Carotid (L): 2+, Dorsalis-Pedis (R): 2+, Doralis-Pedis (L): 2+ Gastrointestinal/Abdominal: positive: Normal Bowel Sounds, Soft. negative: Rebound, Tenderness Musculoskeletal: positive: Normal Inspection Extremity: positive: Normal Inspection Integumentary: positive: Normal Color, Dry, Warm Neurologic: positive: Fully Oriented, Alert, Motor Strength 11/08 ED Treatment Course - LABORATORY CBC & Chemistry Diagram: 02/07/20 02:25 02/07/20 02:25 Medical Decision Making - Medical Decision Making 44 Y F with a PMH of Afib, HTN, and Asthma, presents to ER with palpitations and elevated BP for 1 day. #Afib #uncontrolled HTN - Hx of Afib - EKG - CBC, CMP, cardiac profile, ua, CXR - continuous cardiac monitoring - monitor v/s - ASA 81 - Home meds if needed 02/07/20 01:51 Discharge - Discharge Information Problems reviewed: Yes Clinical Impression/Diagnosis: Atrial fibrillation Condition: Fair Disposition: HOME - Follow up/Referral Referrals: Andrez Meek MD [Primary Care Provider] - - Patient Discharge Instructions Patient Printed Discharge Instructions: DI for Atrial Fibrillation Additional Instructions: Atrial fibrillation is a very most common heart rhythm problem. The condition puts you at risk for strokes and heart attacks. It helps if you control your blo od pressure, not drink more than 1-2 alcohol drinks per day, cut down on caffeine, getting treatment for over active thyroid gland, and get regular exercise. Call your doctor if you feel your heart racing or beating unusually, chest tightness or pain, lightheaded, faint, shortness of breath especially with exercise. It is important to take your heart medication as prescribed. You may be on anticoagulation which is very important to take as directed - you may need blood work to monitor drug levels - Post Discharge Activity
[2020-02-07] MEDS ORDERED: METOPROLOL TARTRATE 5 MG/5 ML VIAL IVPUSH ONE (01:59)
[2020-02-07] MEDS ORDERED: METOPROLOL TARTRATE 5 MG/5 ML VIAL ONE (02:20)
[2020-02-07] MEDS ORDERED: ASPIRIN 81 MG CHEWABLE TABLETS ONE (02:21)
[2020-02-07] MEDS ORDERED: ASPIRIN 81 MG CHEWABLE TABLETS PO SCH ×2 (02:31→10:00)
[2020-02-07 02:34] LABS: BASO % 1.2 % (0-2.0); EOS % 1.5 % (0-4.5); HEMATOCRIT 38.2 % (32.4-45.2); HEMOGLOBIN 12.4 GM/dL (10.7-15.3); LYMPH % 28.4 % (8-40); MCH 28.6 pg (25.7-33.7); MCHC 32.6 g/dl (32.0-36.0); MEAN CELL VOLUME 87.8 fl (80-96); MEAN PLT VOLUME 8.5 fl (7.5-11.1); MONO % 4.6 % (3.8-10.2); NEUT % 64.3 % (42.8-82.8); PLATELET COUNT 290 K/MM3 (134-434); RBC 4.35 M/mm3 (3.60-5.2); RDW 14.4 % (11.6-15.6); WHITE BLOOD COUNT 9.4 K/mm3 (4.0-10.0)
[2020-02-07 03:08] LABS: ALBUMIN 3.6 g/dl (3.4-5.0); ALK PHOS 63 U/L (45-117); ANION GAP 4 MMOL/L (8-16); BILIRUBIN,TOTAL 0.5 mg/dL (0.2-1); BLOOD UREA NITROGEN 9.1 mg/dL (7-18); CALCIUM 9.2 mg/dL (8.5-10.1); CHLORIDE 106 mmol/L (98-107); CO2 27 mmol/L (21-32); CREATININE 0.8 mg/dL (0.55-1.3); GLUCOSE,RANDOM 116 mg/dL (74-106); POTASSIUM 5.6 mmol/L (3.5-5.1); SGOT/AST 34 U/L (15-37); SGPT/ALT 20 U/L (13-61); SODIUM 137 mmol/L (136-145); TOT PROT 7.7 g/dl (6.4-8.2)
[2020-02-07 03:16] LABS: EPI CELLS 11 /uL (0-25.1); HYALINE CASTS 0 /uL (0-3.1); PH,URINE 7.5 (5.0-8.0); URINE APPEARANCE CLEAR; URINE BACTERIA 269 /uL (0-1359); URINE BILIRUBIN NEGATIVE (NEGATIVE); URINE COLOR YELLOW; URINE GLUCOSE (UA) NEGATIVE (NEGATIVE); URINE KETONE NEGATIVE (NEGATIVE); URINE LEUK ESTERASE NEGATIVE (NEGATIVE); URINE NITRITE NEGATIVE (NEGATIVE); URINE PROTEIN NEGATIVE (NEGATIVE); URINE RBC 16 /uL (0-23.9); URINE UROBILINOGEN 0.2 mg/dL (0.2-1.0); URINE WBC 2 /uL (0-25.8)
[2020-02-07 03:19] LABS: HCG,QUALITATIVE URINE Negative
[2020-02-07] MEDS ORDERED: SODIUM POLYSTYRENE SULFONATE 15 GM/60 ML BOTTLE PO ONE (04:00)
[2020-02-07] MEDS ORDERED: SODIUM POLYSTYRENE SULFONATE 15 GM/60 ML BOTTLE ONE (04:00)
--- NOTE | 2020-02-07 04:02 | PDOC ---
*Physical Exam - Vital Signs Last Vital Signs Temp Pulse Resp BP Pulse Ox 98.8 F 86 22 H 153/94 98 02/06/20 23:15 02/07/20 03:08 02/07/20 03:08 02/07/20 03:08 02/07/20 03:08 ED Treatment Course - LABORATORY CBC & Chemistry Diagram: 02/07/20 02:25 02/07/20 02:25 - ADDITIONAL ORDERS Additional order review: Laboratory Results 02/07/20 02/07/20 03:04 02:25 Sodium 137 Potassium 5.6 H Chloride 106 Carbon Dioxide 27 Anion Gap 4 L BUN 9.1 Creatinine 0.8 Est GFR (CKD-EPI)AfAm 103.19 Est GFR (CKD-EPI)NonAf 89.04 Random Glucose 116 H Calcium 9.2 Total Bilirubin 0.5 AST 34 ALT 20 Alkaline Phosphatase 63 Creatine Kinase 222 H Creatine Kinase Index 0.5 CK-MB (CK-2) 1.2 Troponin I < 0.02 Total Protein 7.7 Albumin 3.6 Urine Color Yellow Urine Appearance Clear Urine pH 7.5 D Ur Specific [place] 1.011 Urine Protein Negative Urine Glucose (UA) Negative Urine Ketones Negative Urine Blood Trace Urine Nitrite Negative Urine Bilirubin Negative Urine Urobilinogen 0.2 Ur Leukocyte Esterase Negative Urine WBC (Auto) 2 Urine RBC (Auto) 16 Urine Casts (Auto) 0 U Epithel Cells (Auto) 11 Urine Bacteria (Auto) 269 Urine HCG, Qual Negative 02/07/20 02:25 RBC 4.35 MCV 87.8 MCHC 32.6 RDW 14.4 MPV 8.5 Neutrophils % 64.3 D Lymphocytes % 28.4 D Monocytes % 4.6 Eosinophils % 1.5 Basophils % 1.2 - RADIOLOGY Radiology Studies Ordered: Category Date Time Status CHEST X-RAY PORTABLE* [RAD] Stat Radiology 02/07/20 02:02 Taken - Medications Given in the ED: ED Medications Discontinued Medications Generic Name Dose Route Start Last Admin Trade Name Freq PRN Reason Stop Dose Admin Metoprolol Tartrate 5 mg 02/07/20 01:59 02/07/20 02:30 Lopressor Injection - IVPUSH 02/07/20 02:00 5 mg ONCE ONE Administration Medical Decision Making - Medical Decision Making 02/07/20 04:00 negative daliaoni cherise wagner for potassium of 5.6 Discharge - Discharge Information Problems reviewed: Yes Clinical Impression/Diagnosis: Atrial fibrillation Condition: Fair Disposition: HOME - Follow up/Referral Referrals: Andrez Meek MD [Primary Care Provider] - - Patient Discharge Instructions Patient Printed Discharge Instructions: DI for Atrial Fibrillation Additional Instructions: Atrial fibrillation is a very most common heart rhythm problem. The condition puts you at risk for strokes and heart attacks. It helps if you control your blood pressure, not drink more than 1-2 alcohol drinks per day, cut down on caffeine, getting treatment for over active thyroid gland, and get regular exercise. Call your doctor if you feel your heart racing or beating unusually, chest tightness or pain, lightheaded, faint, shortness of breath especially with exercise. It is important to take your heart medication as prescribed. You may be on anticoagulation which is very important to take as directed - you may need blood work to monitor drug levels - Post Discharge Activity
[2020-02-07 04:07] VITALS: BP 160/99; PULSE 90
--- NOTE | 2020-02-09 14:40 | EKG ---
Test Reason : Blood Pressure : / mmHG Vent. Rate : 109 BPM Atrial Rate : 120 BPM P-R Int : 000 ms QRS Dur : 088 ms QT Int : 330 ms P-R-T Axes : 000 064 033 degrees QTc Int : 444 ms ATRIAL FIBRILLATION WITH RAPID VENTRICULAR RESPONSE ABNORMAL ECG WHEN COMPARED WITH ECG OF 20-MAR-2019 10:02, ATRIAL FIBRILLATION HAS REPLACED SINUS RHYTHM Confirmed by MD Obie, Costa ([id number]) on 02/09/2020 2:40:35 PM Referred By: Confirmed By:Costa Ragland MD
== END 2020-02-07 04:22 | disposition home or self-care (01) ==
LOC: JER 23:15
PROC: 3E033GC Introduction of Other Therapeutic Substance into Peripheral Vein, Percutaneous Approach (ICD-10-PCS; principal; 2020-02-06)
DX: I48.91 Unspecified atrial fibrillation (principal)
CPT/HCPCS: 36415; 71045-TC-FY; 80053; 81003; 82550; 82553; 84484; 84703; 85025; 93005; 93010; 99285-25

== ENCOUNTER 2020-03-02 02:48 | Inpatient (IN) | payer OTHER ==
--- NOTE | 2020-03-02 02:54 | PDOC ---
History of Present Illness - General Stated Complaint: AFIB Time Seen by Provider: 03/02/20 02:54 - History of Present Illness Initial Comments: 03/02/20 02:54 HPI: 44 y/o F with hx of AFib (on eliquis) and HTN presenting with sudden onset palpitations around midnight. She felt anxious and tried to sleep but had no improvement. She took her metop 75mg and eliquis without improvement and presented to the ER. On arrival, HR in afib with RVR to 140s. She denies chest pain, SOB, NIEVES, LH, fever, chills, abd pain, n/v, syncope. Of note, she reports not taking her meds for the past week because she was smoking and drinking and didnt want to mix meds. PMHx: as noted above ROS: as noted SHx: +tobacco use; + alcohol use; no rec drugs Allergies: NKDA ROS: GENERAL/CONSTITUTIONAL: No fever or chills. No weakness. HEAD, EYES, EARS, NOSE AND THROAT: No change in vision. No ear pain or discharge. No sore throat. CARDIOVASCULAR: No chest pain or shortness of breath RESPIRATORY: No cough, wheezing, or hemoptysis. GASTROINTESTINAL: No nausea, vomiting, diarrhea or constipation. GENITOURINARY: No dysuria, frequency, or change in urination. MUSCULOSKELETAL: No joint or muscle swelling or pain. No neck or back pain. SKIN: No rash NEUROLOGIC: No headache, vertigo, loss of consciousness, or change in strength/sensation. ENDOCRINE: No increased thirst. No abnormal weight change HEMATOLOGIC/LYMPHATIC: No anemia, easy bleeding, or history of blood clots. ALLERGIC/IMMUNOLOGIC: No hives or skin allergy. PE: GENERAL: Awake, alert, and fully oriented, no acute distress HEAD: No signs of trauma, normocephalic, atraumatic EYES: EOMI, sclera anicteric, conjunctiva clear ENT: Auricles normal inspection, hearing grossly normal, nares patent, oropharynx clear without exudates. Moist mucosa NECK: Normal ROM, no lymphadenopathy LUNGS: No increased work of breathing, symmetrical chest rise, clear to auscultation bilaterally, no wheezes, crackles or rhonchi HEART: tachycardic, irregularly irregular rhythm, normal S1 and S2, no murmur, peripheral pulses 2+ and equal bilaterally. ABDOMEN: obese, soft, nondistended, nontender. No guarding, no rebound. No masses. No CVAT MUSCULOSKELETAL: FROM NEUROLOGICAL: Cranial nerves II through XII grossly intact. Normal speech, stable gait, no focal sensorimotor deficits SKIN: Warm, Dry, normal turgor, no rashes or lesions noted Past History - Medical History Allergies/Adverse Reactions: Allergies Allergy/AdvReac Type Severity Reaction Status Date / Time No Known Allergies Allergy Verified 02/06/20 23:47 Home Medications: Ambulatory Orders Hydrochlorothiazide [Hctz -] 12.5 mg PO DAILY 12/12/15 Amlodipine Besylate [Norvasc -] 2.5 mg PO DAILY 07/15/16 Apixaban [Eliquis] 5 mg PO BID #6 tablet 02/21/18 Metoprolol Succinate [Toprol XL -] 50 mg PO DAILY #30 tab.sr.24h 02/21/18 Albuterol 0.083% Nebulizer Rachael [Ventolin 0.083% Nebulizer Soln -] 1 neb NEB Q4H PRN #30 vial 03/20/19 Albuterol Sulfate Inhaler - [Ventolin HFA Inhaler -] 1 - 2 inh PO Q4H PRN #1 inhaler 03/20/19 Azithromycin [Zithromax 250mg Tablets -] 250 mg PO ASDIR #6 tablet 03/20/19 Anemia: No Asthma: Yes Cancer: No Cardiac Disorders: Yes (mvp a-fib) CVA: No COPD: No CHF: No Dementia: No Diabetes: No GI Disorders: No Disorders: No HTN: Yes Hypercholesterolemia: No Liver Disease: No Seizures: No Thyroid Disease: No - Surgical History Abdominal Surgery: No Appendectomy: No Cardiac Surgery: No Cholecystectomy: No Lung Surgery: No Neurologic Surgery: No Orthopedic Surgery: Yes (Left Knee and Right Wrist Arthroscopy) - Immunization History Td Vaccination: No TDAP Vaccination: Yes Immunization Up to Date: Yes - Psycho-Social/Smoking History Smoking Status: Yes Smoking History: Never smoked Have you smoked in the past 12 months: Yes Number of Cigarettes Smoked Daily: 3 Cigars Per Day: 0 'Breaking Loose' booklet given: 09/22/16 ED Treatment Course - LABORATORY CBC & Chemistry Diagram: 03/02/20 03:40 03/02/20 03:40 Medical Decision Making - Medical Decision Making 03/02/20 04:43 44 y/o F with hx of AFib (on eliquis) and HTN presenting with sudden onset palpitations around midnight after being nonmed complaint x1week. On arrival, HR in afib with RVR to 140s. PE with tachycardia and irregular rhythm. -cbc, cmp, coags, card prof, ekg, cxr -10mg dilt push, dilt drip 03/02/20 04:44 HR improved to 88 in afib admitted to dr knowles Discharge - Discharge Information Problems reviewed: Yes Clinical Impression/Diagnosis: Atrial fibrillation Condition: Stable - Follow up/Referral Referrals: Andrez Meek MD [Primary Care Provider] - - Patient Discharge Instructions - Post Discharge Activity
[2020-03-02 03:18] VITALS: BMI 46.0
--- NOTE | 2020-03-02 03:27 | PDOC ---
Attending Attestation - Resident Resident Name: Hadley Hill - ED Attending Attestation I have performed the following: I have examined & evaluated the patient, The case was reviewed & discussed with the resident, I agree w/resident's findings & plan - HPI HPI: 03/02/20 03:21 see resident hpi - Physicial Exam PE: 03/02/20 03:21 see resident exam - Medical Decision Making 03/02/20 03:[id number] female with history of atrial fibrillation and admitted noncompliance with her Eliquis and metoprolol now with elevated heart rate and palpitations that began abruptly preventing her from sleep Patient admits to alcohol use at times as well Patient states that she took 75 mg of metoprolol prior to arrival as well as 1 dose of her Eliquis Heart rate still ranging from the 110s to the 140s Plan for Cardizem 15 mg IV with placement on a 5 mg/h drip and admission to telemetry Discharge - Discharge Information Problems reviewed: Yes Clinical Impression/Diagnosis: Atrial fibrillation - Follow up/Referral Referrals: Andrez Meek MD [Primary Care Provider] - - Patient Discharge Instructions - Post Discharge Activity
[2020-03-02] MEDS ORDERED: dilTIAZem HCL 50 MG/10 ML - 10 ML VIAL IVPUSH ONE (03:28)
[2020-03-02] MEDS ORDERED: SODIUM CHLORIDE 1,000 ML IV STA (03:34)
[2020-03-02] MEDS ORDERED: DILTIAZEM INJECTION 125 MG in SODIUM CHLORIDE 100 ML IVPB SCH (03:45)
[2020-03-02] MEDS ORDERED: dilTIAZem HCL 125 MG/25 ML - 25 ML VIAL ONE (03:49)
[2020-03-02] MEDS ORDERED: dilTIAZem HCL 50 MG/10 ML - 10 ML VIAL ONE (03:50)
[2020-03-02 03:58] LABS: EPI CELLS 1 /uL (0-25.1); HYALINE CASTS 0 /uL (0-3.1); PH,URINE 6.5 (5.0-8.0); URINE APPEARANCE CLEAR; URINE BACTERIA 65 /uL (0-1359); URINE BILIRUBIN NEGATIVE (NEGATIVE); URINE COLOR YELLOW; URINE GLUCOSE (UA) NEGATIVE (NEGATIVE); URINE KETONE NEGATIVE (NEGATIVE); URINE LEUK ESTERASE NEGATIVE (NEGATIVE); URINE NITRITE NEGATIVE (NEGATIVE); URINE PROTEIN NEGATIVE (NEGATIVE); URINE RBC 5 /uL (0-23.9); URINE UROBILINOGEN 0.2 mg/dL (0.2-1.0); URINE WBC 0 /uL (0-25.8)
[2020-03-02 04:08] LABS: BASO % 1.3 % (0-2.0); EOS % 2.7 % (0-4.5); HEMATOCRIT 38.4 % (32.4-45.2); HEMOGLOBIN 12.7 GM/dL (10.7-15.3); LYMPH % 25.6 % (8-40); MCHC 32.9 g/dl (32.0-36.0); MEAN PLT VOLUME 9.3 fl (7.5-11.1); MONO % 5.9 % (3.8-10.2); NEUT % 64.5 % (42.8-82.8); PLATELET COUNT 289 K/MM3 (134-434); RBC 4.37 M/mm3 (3.60-5.2); RDW 14.5 % (11.6-15.6); WHITE BLOOD COUNT 7.6 K/mm3 (4.0-10.0)
[2020-03-02 04:19] LABS: ALBUMIN 3.6 g/dl (3.4-5.0); ALK PHOS 78 U/L (45-117); ANION GAP 6 MMOL/L (8-16); BILIRUBIN,TOTAL 0.3 mg/dL (0.2-1); BLOOD UREA NITROGEN 19.2 mg/dL (7-18); CHLORIDE 107 mmol/L (98-107); CO2 25 mmol/L (21-32); CREATININE 1.1 mg/dL (0.55-1.3); GLUCOSE,RANDOM 108 mg/dL (74-106); POTASSIUM 4.6 mmol/L (3.5-5.1); SGOT/AST 24 U/L (15-37); SGPT/ALT 22 U/L (13-61); SODIUM 138 mmol/L (136-145); TOT PROT 7.7 g/dl (6.4-8.2)
[2020-03-02] MEDS ORDERED: ALBUTEROL SO4 0.083% IH SOL 2.5 MG/3 ML VIAL.NEB. NEB PRN (09:37)
[2020-03-02] MEDS ORDERED: amLODIPine BESYLATE 2.5 MG TABLET (FP) PO SCH (10:00)
[2020-03-02] MEDS ORDERED: HYDROCHLOROTHIAZIDE 12.5 MG CAPSULE (FP) PO SCH (10:00)
[2020-03-02] MEDS ORDERED: APIXABAN 5 MG TABLET PO SCH ×2 (10:00)
[2020-03-02] MEDS ORDERED: amLODIPine BESYLATE 2.5 MG TABLET (FP) ONE (10:04)
[2020-03-02] MEDS ORDERED: APIXABAN 5 MG TABLET ONE (10:04)
[2020-03-02] MEDS ORDERED: HYDROCHLOROTHIAZIDE 25 MG TABLET (FP) ONE (10:05)
[2020-03-02 12:02] VITALS: BP 137/88; PULSE 85; TEMP 97.8
--- NOTE | 2020-03-02 12:35 | EKG ---
Test Reason : Blood Pressure : / mmHG Vent. Rate : 122 BPM Atrial Rate : 097 BPM P-R Int : 000 ms QRS Dur : 084 ms QT Int : 314 ms P-R-T Axes : 000 039 009 degrees QTc Int : 447 ms ATRIAL FIBRILLATION WITH RAPID VENTRICULAR RESPONSE NONSPECIFIC ST ABNORMALITY ABNORMAL ECG WHEN COMPARED WITH ECG OF 06-FEB-2020 23:29, INVERTED T WAVES HAVE REPLACED NONSPECIFIC T WAVE ABNORMALITY IN INFERIOR LEADS NONSPECIFIC T WAVE ABNORMALITY NO LONGER EVIDENT IN ANTERIOR LEADS Confirmed by ELYSE CRUZ MD ([id number]) on 03/02/2020 12:35:09 PM Referred By: Confirmed By:ELYSE CRUZ MD
== END 2020-03-02 12:10 | disposition left against medical advice (07) | DRG 201 ==
LOC: JER 02:48 → JERBED 04:39
PROVIDERS: ADMIT Internal Medicine; ATTEND Internal Medicine
DX: I48.91 Unspecified atrial fibrillation (principal); Z79.01 Long term (current) use of anticoagulants; I10 Essential (primary) hypertension; Z91.14 Patient's other noncompliance with medication regimen
CPT/HCPCS: 36415; 71045-TC-FY; 80053; 81003; 82550; 82553; 84484; 85025; 93005; 93010; 99285-25; U0003

== ENCOUNTER → 2020-09-19 | Day surgery (SDC) | payer OTHER | END | disposition home or self-care (01) | LOC: JRADIR 10:03 | PROVIDERS: ATTEND Internal Medicine Endocrinology, Diabetes & Metabolism | PROC: 0G9G3ZX Drainage of Left Thyroid Gland Lobe, Percutaneous Approach, Diagnostic (ICD-10-PCS; principal; 2020-09-19) | DX: E04.1 Nontoxic single thyroid nodule (principal) | CPT/HCPCS: 10005; 76942 ==

== ENCOUNTER → 2020-10-24 | Day surgery (SDC) | payer OTHER | END | disposition home or self-care (01) | LOC: JRADIR 10:44 | PROVIDERS: ATTEND Internal Medicine Endocrinology, Diabetes & Metabolism | PROC: 0G9K3ZX Drainage of Thyroid Gland, Percutaneous Approach, Diagnostic (ICD-10-PCS; principal; 2020-10-24) | DX: E04.1 Nontoxic single thyroid nodule (principal) | CPT/HCPCS: 10005; 76942; 88173; 88305-TC ==

== ENCOUNTER 2021-03-15 20:53 | Emergency (ER) | payer OTHER ==
[2021-03-15 21:05] VITALS: TEMP 97.6; BMI 48.1
[2021-03-15] MEDS ORDERED: ACETAMINOPHEN 1000 MG/100 ML VIAL (NON FORMULARY) IVPB ONE (21:49)
[2021-03-15] MEDS ORDERED: SODIUM CHLORIDE 0.9% 500 ML INFUS.BAG IV ONE (21:50)
[2021-03-15] MEDS ORDERED: METOCLOPRAMIDE HCL INJECTION 10 MG/2 ML VIAL IVPUSH ONE (21:51)
[2021-03-15] MEDS ORDERED: ACETAMINOPHEN INJECTION 100 ML IVPB ONE (22:32)
[2021-03-15] MEDS ORDERED: METOCLOPRAMIDE HCL INJECTION 10 MG/2 ML VIAL ONE (22:32)
[2021-03-16 01:29] VITALS: BP 141/78; PULSE 58
== END 2021-03-16 02:15 | disposition left against medical advice (07) ==
LOC: JER 20:53
PROC: 3E033GC Introduction of Other Therapeutic Substance into Peripheral Vein, Percutaneous Approach (ICD-10-PCS; principal; 2021-03-15)
DX: R51.9 Headache, unspecified (principal)
CPT/HCPCS: 70450-TC; 72125-TC; 93005; 93010; 99285-25; J0131

== ENCOUNTER 2021-12-20 02:35 | Emergency (ER) | payer OTHER ==
[2021-12-20 04:00] VITALS: BMI 46.8
[2021-12-20 04:40] LABS: BASO % 0.7 % (0-2.0); EOS % 2.3 % (0-4.5); HEMATOCRIT 37.8 % (32.4-45.2); HEMOGLOBIN 12.2 GM/dL (10.7-15.3); LYMPH % 28.3 % (8-40); MCH 28.1 pg (25.7-33.7); MCHC 32.4 g/dl (32.0-36.0); MEAN CELL VOLUME 86.7 fl (80-96); MEAN PLT VOLUME 8.4 fl (7.5-11.1); MONO % 7.8 % (3.8-10.2); NEUT % 60.9 % (42.8-82.8); PLATELET COUNT 307 10^3/uL (134-434); RBC 4.36 M/mm3 (3.60-5.2); RDW 14.8 % (11.6-15.6)
[2021-12-20 05:19] LABS: EPI CELLS 7 /uL (0-25.1); HYALINE CASTS 0 /uL (0-3.1); PH,URINE 7.5 (5.0-8.0); URINE APPEARANCE CLEAR; URINE BACTERIA 177 /uL (0-1359); URINE BILIRUBIN NEGATIVE (NEGATIVE); URINE COLOR YELLOW; URINE GLUCOSE (UA) NEGATIVE (NEGATIVE); URINE KETONE NEGATIVE (NEGATIVE); URINE LEUK ESTERASE NEGATIVE (NEGATIVE); URINE NITRITE NEGATIVE (NEGATIVE); URINE PROTEIN NEGATIVE (NEGATIVE); URINE RBC 14 /uL (0-23.9); URINE UROBILINOGEN 0.2 mg/dL (0.2-1.0); URINE WBC 4 /uL (0-25.8)
[2021-12-20 05:20] LABS: CALCIUM 8.9 mg/dL (8.5-10.1)
[2021-12-20 05:21] LABS: ALBUMIN 3.3 g/dl (3.4-5.0); BLOOD UREA NITROGEN 13.2 mg/dL (7-18)
[2021-12-20 05:24] LABS: CREATININE 0.8 mg/dL (0.55-1.3)
[2021-12-20 05:29] LABS: BILIRUBIN,TOTAL 0.4 mg/dL (0.2-1); TOT PROT 7.3 g/dl (6.4-8.2)
[2021-12-20 05:41] LABS: ACTIVATED PTT 34.1 SECONDS (25.2-36.5); INR 0.99 (0.83-1.09); PROTHROMBIN TIME (PATIENT) 11.4 SEC (9.7-13.0)
[2021-12-20 07:03] VITALS: BP 132/88; PULSE 98; TEMP 97.2
== END 2021-12-20 09:01 | disposition home or self-care (01) ==
LOC: JER 02:35
DX: R00.2 Palpitations (principal)
CPT/HCPCS: 36415; 71046-TC-FY; 80053; 81003; 84439; 84443; 84484; 84703; 85025; 85610; 85730; 87086; 93005; 93010; 99285-25

== ENCOUNTER 2022-03-17 18:37 | Emergency (ER) | payer OTHER ==
[2022-03-17 19:03] VITALS: BP 147/87; PULSE 65; RESP 18; TEMP 98.1; BMI 46.0
== END 2022-03-17 21:35 | disposition home or self-care (01) ==
LOC: JERFT 18:37
PROC: 0HQFXZZ Repair Right Hand Skin, External Approach (ICD-10-PCS; principal; 2022-03-17)
DX: S61.210A Laceration without foreign body of right index finger without damage to nail, initial encounter (principal)
CPT/HCPCS: 99283-25

== ENCOUNTER 2022-04-11 00:26 | Inpatient (IN) | payer OTHER ==
[2022-04-11 00:47] VITALS: BMI 48.2
[2022-04-11] MEDS ORDERED: LEVALBUTEROL HCL 0.63 MG/3 ML VIAL.NEB. IH STA (01:11)
[2022-04-11] MEDS ORDERED: methylPREDNISolone NA SUCC 125 MG/2 ML VIAL IVPB ONE (01:12)
[2022-04-11] MEDS ORDERED: methylPREDNISolone NA SUCC 125 MG/2 ML VIAL ONE (01:12)
[2022-04-11 01:53] LABS: BASO % 0.6 % (0-2.0); EOS % 1.4 % (0-4.5); HEMATOCRIT 35.7 % (32.4-45.2); HEMOGLOBIN 11.5 GM/dL (10.7-15.3); LYMPH % 24.1 % (8-40); MCH 27.8 pg (25.7-33.7); MCHC 32.3 g/dl (32.0-36.0); MEAN CELL VOLUME 85.9 fl (80-96); MONO % 12.3 % (3.8-10.2); NEUT % 61.6 % (42.8-82.8); PLATELET COUNT 213 10^3/uL (134-434); RBC 4.16 M/mm3 (3.60-5.2); RDW 14.5 % (11.6-15.6); WHITE BLOOD COUNT 4.6 K/mm3 (4.0-10.0)
[2022-04-11 01:59] LABS: INR 1.06 (0.83-1.09); PROTHROMBIN TIME (PATIENT) 12.2 SEC (9.7-13.0)
[2022-04-11 02:01] LABS: ACTIVATED PTT 34.1 SECONDS (25.2-36.5)
[2022-04-11 02:03] LABS: CALCIUM 8.5 mg/dL (8.5-10.1)
[2022-04-11 02:04] LABS: ALBUMIN 3.3 g/dl (3.4-5.0); BLOOD UREA NITROGEN 8.7 mg/dL (7-18); MAGNESIUM 1.8 mg/dL (1.8-2.4)
[2022-04-11 02:07] LABS: CREATININE 0.9 mg/dL (0.55-1.3)
[2022-04-11 02:09] LABS: BILIRUBIN,TOTAL 0.4 mg/dL (0.2-1); TOT PROT 6.7 g/dl (6.4-8.2)
[2022-04-11] MEDS ORDERED: FUROSEMIDE 40 MG/4 ML INJECTABLE VIAL IVPUSH ONE (02:52)
[2022-04-11] MEDS ORDERED: FUROSEMIDE 40 MG/4 ML INJECTABLE VIAL ONE (02:55)
[2022-04-11] MEDS ORDERED: LEVALBUTEROL HCL 0.63 MG/3 ML VIAL.NEB. IH ONE (04:45)
[2022-04-11] MEDS ORDERED: ALBUTEROL SO4 HFA INHALER IH PRN (10:38)
[2022-04-11] MEDS ORDERED: amLODIPine BESYLATE 2.5 MG TABLET (FP) PO SCH (10:45)
[2022-04-11] MEDS ORDERED: methylPREDNISolone NA SUCC 40 MG/1 ML VIAL IVPUSH SCH (10:45)
[2022-04-11] MEDS ORDERED: LEVALBUTEROL HCL 0.63 MG/3 ML VIAL.NEB. IH PRN (10:45)
[2022-04-11] MEDS ORDERED: APIXABAN 5 MG TABLET PO SCH (10:45)
[2022-04-11] MEDS ORDERED: CEFTRIAXONE 1 GM in DEXTROSE 5%-WATER - 50 ML IVPB SCH (10:45)
[2022-04-11] MEDS ORDERED: amLODIPine BESYLATE 2.5 MG TABLET (FP) ONE (11:07)
[2022-04-11] MEDS ORDERED: methylPREDNISolone NA SUCC 40 MG/1 ML VIAL ONE (11:07)
[2022-04-11] MEDS ORDERED: CEFTRIAXONE 1 GM/50 ML BAG ONE (11:07)
[2022-04-11] MEDS ORDERED: APIXABAN 5 MG TABLET ONE (11:07)
[2022-04-11 12:28] VITALS: BP 158/94; PULSE 65; RESP 18; TEMP 97.4
== END 2022-04-11 12:30 | disposition left against medical advice (07) | DRG 201 ==
LOC: JER 00:26 → JERBED 01:12
PROVIDERS: ADMIT Internal Medicine; ATTEND Internal Medicine
DX: I48.0 Paroxysmal atrial fibrillation (principal); J45.909 Unspecified asthma, uncomplicated; Z79.01 Long term (current) use of anticoagulants; E66.01 Morbid (severe) obesity due to excess calories; I10 Essential (primary) hypertension; R00.2 Palpitations; G47.33 Obstructive sleep apnea (adult) (pediatric); Z68.42 Body mass index [BMI] 45.0-49.9, adult; Z53.29 Procedure and treatment not carried out because of patient's decision for other reasons
CPT/HCPCS: 0241U-QW; 36415; 71045-TC-FY; 80053; 83735; 83880; 84484; 84703; 85025; 85610; 85730; 93005; 93010; 99285-25

== ENCOUNTER 2022-11-05 02:39 | Emergency (ER) | payer OTHER ==
[2022-11-05 02:53] VITALS: BMI 47.4
[2022-11-05] MEDS ORDERED: SODIUM CHLORIDE 0.9% 500 ML INFUS.BAG IV ONE ×2 (03:11→03:14)
[2022-11-05] MEDS ORDERED: METOPROLOL TARTRATE 5 MG/5 ML VIAL IVPUSH ONE (03:14)
[2022-11-05] MEDS ORDERED: METOPROLOL TARTRATE 5 MG/5 ML VIAL ONE (03:58)
[2022-11-05 04:01] LABS: BASO % 1.3 % (0-2.0); EOS % 3.5 % (0-4.5); HEMATOCRIT 40.5 % (32.4-45.2); HEMOGLOBIN 13.2 GM/dL (10.7-15.3); LYMPH % 37.3 % (8-40); MCH 27.5 pg (25.7-33.7); MCHC 32.6 g/dl (32.0-36.0); MEAN CELL VOLUME 84.3 fl (80-96); MEAN PLT VOLUME 8.4 fl (7.5-11.1); MONO % 7.3 % (3.8-10.2); NEUT % 50.6 % (42.8-82.8); PLATELET COUNT 330 10^3/uL (134-434); RDW 14.5 % (11.6-15.6); WHITE BLOOD COUNT 5.9 K/mm3 (4.0-10.0)
[2022-11-05] MEDS ORDERED: METOPROLOL TARTRATE 25 MG TABLET (FP) PO ONE (04:08)
[2022-11-05 04:15] LABS: POTASSIUM 4.7 mmol/L (3.5-5.1)
[2022-11-05 04:17] LABS: ALBUMIN 3.4 g/dl (3.4-5.0); BLOOD UREA NITROGEN 10.9 mg/dL (7-18); CALCIUM 8.9 mg/dL (8.5-10.1); MAGNESIUM 2.1 mg/dL (1.8-2.4)
[2022-11-05] MEDS ORDERED: METOPROLOL TARTRATE 25 MG TABLET (FP) ONE (04:19)
[2022-11-05 04:20] LABS: CREATININE 0.9 mg/dL (0.55-1.3)
[2022-11-05 04:21] LABS: PHOSPHOROUS 3.2 mg/dL (2.5-4.9)
[2022-11-05 04:22] LABS: TOT PROT 7.3 g/dl (6.4-8.2)
[2022-11-05] MEDS ORDERED: MELATONIN 5 MG TABLETS PO ONE (04:23)
[2022-11-05 04:40] LABS: BILIRUBIN,TOTAL 0.3 mg/dL (0.2-1)
[2022-11-05] MEDS ORDERED: MELATONIN 5 MG TABLETS ONE (04:52)
[2022-11-05 06:39] VITALS: BP 131/70; PULSE 88; RESP 19; TEMP 97.6
== END 2022-11-05 06:45 | disposition home or self-care (01) ==
LOC: JER 02:39
PROC: 3E033GC Introduction of Other Therapeutic Substance into Peripheral Vein, Percutaneous Approach (ICD-10-PCS; principal; 2022-11-05)
DX: I48.91 Unspecified atrial fibrillation (principal)
CPT/HCPCS: 36415; 71045-TC-FY; 80053; 83735; 83880; 84100; 84439; 84443; 84484; 84703; 85025; 87086; 93005; 93010; 99285-25

== ENCOUNTER 2024-04-26 15:32 | Emergency (ER) | payer OTHER ==
[2024-04-26 15:39] VITALS: BP 129/74; PULSE 55; RESP 19; TEMP 98.6; BMI 29.2
[2024-04-26] MEDS ORDERED: LIDOCAINE 2.5%/PRILOCAINE 2.5% (5 Gram/TUBE) TP ONE (16:31)
[2024-04-26] MEDS: LIDOCAINE 2.5%/PRILOCAINE 2.5% (5 Gram/TUBE) TP ONE (16:39)
[2024-04-26] MEDS: HYDROCORTISONE ACETATE 25 MG/SUPP.RECT PR ONE (16:59)
== END 2024-04-26 16:59 | disposition home or self-care (01) ==
LOC: JER 15:32
DX: K64.4 Residual hemorrhoidal skin tags (principal); K62.89 Other specified diseases of anus and rectum; K59.00 Constipation, unspecified
CPT/HCPCS: 99283-25

== ENCOUNTER 2024-11-01 16:49 | Emergency (ER) | payer OTHER ==
[2024-11-01 17:29] VITALS: BP 147/79; PULSE 64; RESP 18; TEMP 99; BMI 30.9
[2024-11-01] MEDS: ACETAMINOPHEN 500 MG TABLET (FP) PO ONE (18:06)
[2024-11-01] MEDS ORDERED: ACETAMINOPHEN 500 MG TABLET (FP) ONE (18:06)
== END 2024-11-01 19:10 | disposition home or self-care (01) ==
LOC: JERFT 16:49
DX: S50.01XA Contusion of right elbow, initial encounter (principal); S50.02XA Contusion of left elbow, initial encounter; S60.211A Contusion of right wrist, initial encounter; M54.2 Cervicalgia; Y04.8XXA Assault by other bodily force, initial encounter
CPT/HCPCS: 73070-TC-LT-FY; 73090-TC-RT-FY; 84703; 99284-25